=== PATIENT | female | born 1990 | race Two or more races ===

== ENCOUNTER 2024-03-17 19:07 | Emergency (ER) | payer MEDICAID ==
[~2024-03-17] VITALS: Ht 172.7 cm; Wt 100.3 kg
[~2024-03-17 19:07] MED LIST: CLIN-97 PO
[2024-03-17] MEDS: metoclopramide 5 mg/ml inj IV ONE (20:07)
[2024-03-17] MEDS: diphenhydrAMINE 50 mg/ml inj IV ONE (20:09)
[2024-03-17] MEDS: fentaNYL/PF 50MCG/1 ML 2ML syringe IV ONE ×2 (20:11→20:34)
[2024-03-17] MEDS: LIDOcaine 1% W/epiNEPHrine 1:100,000 20ml vial SQ ONE (20:13)
[2024-03-17] MEDS ORDERED: ONDA-243 PO (21:03)
[2024-03-17] MEDS ORDERED: OXYC-150 PO (21:03)
[2024-03-17] MEDS: oxyCODONE/APAP 10/325mg tablet PO ONE (21:51)
[2024-03-17 21:54] VITALS: BP 118/78; PULSE 75; RESP 18; TEMP 98.6; O2SAT 99
== END 2024-03-17 21:55 | disposition home or self-care (01) ==
LOC: ER 19:07
DX: S82.852A Displaced trimalleolar fracture of left lower leg, initial encounter for closed fracture (principal); X50.1XXA Overexertion from prolonged static or awkward postures, initial encounter; Y93.89 Activity, other specified; Y92.838 Other recreation area as the place of occurrence of the external cause; Y99.8 Other external cause status
CPT/HCPCS: 27818; 73590; 73600; 73610; 99284; J1200; J2765; J3010